=== PATIENT | female | born 2000 | race Caucasian/White ===

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

== ENCOUNTER → 2021-06-01 | Outpatient (CLI) | payer BC, SELFPAY ==
[2021-06-01 15:04] LABS: BASO % 0.4 % (0.0-1.0); EOS # 0.1 10^3/uL (0.0-0.5); EOS % 1.8 % (0.0-3.0); HEMATOCRIT 40.6 % (36.0-47.0); HEMOGLOBIN 13.8 g/dl (12.0-15.5); LYMPH # 2.6 10^3/uL (1.5-5.0); LYMPH % 38.2 % (24.0-44.0); MEAN CORPUSCULAR HEMOGLOBIN 29.4 pg (27.0-33.0); MEAN CORPUSCULAR VOLUME 86.4 fl (80.0-96.0); MONO # 0.3 10^3/uL (0.0-0.8); MONO % 4.9 % (2.0-8.0); NEUTROPHILS # 3.7 10^3/uL (1.5-8.5); NEUTROPHILS % 54.4 % (36.0-66.0); PLATELET COUNT, AUTOMATED 256 10^3/uL (150-450); WHITE BLOOD COUNT 6.8 10^3/uL (4.0-10.0)
[2021-06-01 15:26] LABS: ALBUMIN 3.7 GM/DL (3.2-5.2); ALT/SGPT 21 U/L (12-78); BILIRUBIN,TOTAL 0.4 MG/DL (0.2-1.0); BLOOD UREA NITROGEN 8 MG/DL (7-18); CALCIUM LEVEL 9.2 MG/DL (8.5-10.1); CARBON DIOXIDE LEVEL 27 MEQ/L (21-32); CHLORIDE LEVEL 104 MEQ/L (98-107); CHOLESTEROL LEVEL 206 MG/DL (<200); CREATININE FOR GFR 0.88 MG/DL (0.55-1.30); GLUCOSE, FASTING 110 MG/DL (70-100); HDL CHOLESTEROL 50 MG/DL (>40); LDL CHOLESTEROL 132 MG/DL (<100); NON-HDL-C 156 MG/DL; POTASSIUM SERUM 3.8 MEQ/L (3.5-5.1); SODIUM LEVEL 138 MEQ/L (136-145); THYROID STIMULATING HORMONE 0.895 uIU/ML (0.463-3.98); TOTAL PROTEIN 7.2 GM/DL (6.4-8.2); TRIGLYCERIDES LEVEL 119 MG/DL (<150)
[2021-06-01 15:28] LABS: TOTAL 25(OH) VITAMIN D 11.3 NG/ML (30.0-100.0)
[2021-06-01 15:29] LABS: VITAMIN B12 LEVEL 432 PG/ML (247-911)
== END ==
LOC: M LAB 14:13
PROVIDERS: ATTEND Internal Medicine
DX: Z79.899 Other long term (current) drug therapy (principal)

== ENCOUNTER 2021-07-07 14:33 | Emergency (ER) | payer BC ==
[~2021-07-07] VITALS: Ht 161.3 cm; Wt 72.7 kg
[2021-07-07] MEDS ORDERED: CLON-412 (14:44)
[2021-07-07] MEDS ORDERED: DOXE25CA (14:44)
[2021-07-07] MEDS ORDERED: OXCA150T21 (14:44)
[2021-07-07] MEDS ORDERED: ONDANSETRON 4MG ORAL DISINTEGRATING TAB PO ONE (17:50)
[2021-07-07] MEDS ORDERED: ACETAMINOPHEN 325 MG TAB PO ONE (17:50)
[2021-07-07] MEDS ORDERED: ONDA4TAB6 PO (18:36)
[2021-07-07 18:43] VITALS: BP 119/73
== END 2021-07-07 18:45 | disposition home or self-care (01) ==
LOC: M ED 14:33
DX: S06.0X0A Concussion without loss of consciousness, initial encounter (principal); X58.XXXA Exposure to other specified factors, initial encounter; Y92.018 Other place in single-family (private) house as the place of occurrence of the external cause; Y93.83 Activity, rough housing and horseplay; F33.9 Major depressive disorder, recurrent, unspecified; Z86.19 Personal history of other infectious and parasitic diseases; Z91.030 Bee allergy status; Z79.899 Other long term (current) drug therapy; Z79.3 Long term (current) use of hormonal contraceptives; F17.210 Nicotine dependence, cigarettes, uncomplicated

== ENCOUNTER 2023-06-09 16:51 | Emergency (ER) | payer BC, MEDICAID, OTHER, SELFPAY ==
[~2023-06-09] VITALS: Ht 160 cm; Wt 67.1 kg
[~2023-06-09 16:51] MED LIST changes: +CLON-412; +DOXE25CA; +OXCA150T21
[2023-06-09] MEDS ORDERED: LINZ72CA (17:07)
[2023-06-09] MEDS ORDERED: VRAY3CAP (17:07)
[2023-06-09] MEDS: MORPHINE 4 MG/ML 1ML VIAL IV ONE (17:35)
[2023-06-09] MEDS: ONDANSETRON 4MG 2ML VIAL IV ONE (17:35)
[2023-06-09] MEDS: NS 1,000 ML IV ONE (17:35)
[2023-06-09 17:46] LABS: BASO % 0.5 % (0.0-1.0); EOS # 0.2 10^3/uL (0.0-0.5); EOS % 2.8 % (0.0-3.0); HEMATOCRIT 40.1 % (36.0-47.0); HEMOGLOBIN 13.8 g/dl (12.0-15.5); LYMPH # 2.5 10^3/uL (1.5-5.0); LYMPH % 38.9 % (24.0-44.0); MEAN CORPUSCULAR HEMOGLOBIN 30.1 pg (27.0-33.0); MEAN CORPUSCULAR HGB CONC 34.4 g/dl (32.0-36.5); MEAN CORPUSCULAR VOLUME 87.6 fl (80.0-96.0); MONO # 0.4 10^3/uL (0.0-0.8); NEUTROPHILS # 3.2 10^3/uL (1.5-8.5); NEUTROPHILS % 50.6 % (36.0-66.0); PLATELET COUNT, AUTOMATED 207 10^3/uL (150-450); RED BLOOD COUNT 4.58 10^6/uL (4.00-5.40); WHITE BLOOD COUNT 6.3 10^3/uL (4.0-10.0)
[2023-06-09] MEDS ORDERED: ISOVUE-370 76% 100ML VIAL As Ordered ONE (17:53)
[2023-06-09 18:12] LABS: ALBUMIN 3.4 G/DL (3.2-5.2); BILIRUBIN,DIRECT 0.1 MG/DL (<0.4); BILIRUBIN,TOTAL 0.4 MG/DL (0.3-1.2); TOTAL PROTEIN 6.5 G/DL (5.7-8.2)
[2023-06-09 19:31] VITALS: BP 133/75; TEMP 97.5; O2SAT 98
== END 2023-06-09 19:33 | disposition home or self-care (01) ==
LOC: M ED 16:51
DX: K59.00 Constipation, unspecified (principal); K58.9 Irritable bowel syndrome, unspecified; K21.9 Gastro-esophageal reflux disease without esophagitis; F31.9 Bipolar disorder, unspecified; F17.290 Nicotine dependence, other tobacco product, uncomplicated; Z79.899 Other long term (current) drug therapy; Z91.030 Bee allergy status
CPT/HCPCS: 74177; 80047; 80076; 81001; 83690; 84702; 85025; 96361; 96374; 96375; 99284; J2405; Q9967

== ENCOUNTER 2023-12-20 18:00 | Emergency (ER) | payer MEDICAID, OTHER ==
[~2023-12-20] VITALS: Ht 160 cm; Wt 68.3 kg
[~2023-12-20 18:00] MED LIST changes: +LINZ72CA; +ONDA-282 PO; -ONDA4TAB6 PO; +VRAY3CAP
[2023-12-20 18:04] VITALS: TEMP 97.4
[2023-12-20] MEDS ORDERED: LARI1TAB3 (18:11)
[2023-12-20] MEDS ORDERED: ACET-683 PO (18:11)
[2023-12-20 19:08] LABS: BASO % 0.4 % (0.0-1.0); EOS # 0.1 10^3/uL (0.0-0.5); EOS % 0.7 % (0.0-3.0); HEMATOCRIT 38.5 % (36.0-47.0); HEMOGLOBIN 13.2 g/dl (12.0-15.5); LYMPH # 2.3 10^3/uL (1.5-5.0); LYMPH % 31.8 % (24.0-44.0); MEAN CORPUSCULAR HEMOGLOBIN 30.7 pg (27.0-33.0); MEAN CORPUSCULAR HGB CONC 34.3 g/dl (32.0-36.5); MEAN CORPUSCULAR VOLUME 89.5 fl (80.0-96.0); MONO # 0.5 10^3/uL (0.0-0.8); MONO % 6.5 % (2.0-8.0); NEUTROPHILS # 4.4 10^3/uL (1.5-8.5); NEUTROPHILS % 60.3 % (36.0-66.0); PLATELET COUNT, AUTOMATED 207 10^3/uL (150-450); WHITE BLOOD COUNT 7.4 10^3/uL (4.0-10.0)
[2023-12-20 19:30] LABS: BLOOD UREA NITROGEN 10 MG/DL (9-23); CALCIUM LEVEL 9.3 MG/DL (8.5-10.1); CARBON DIOXIDE LEVEL 26 MMOL/L (20-31); CHLORIDE LEVEL 107 MMOL/L (98-107); CREATININE FOR GFR 0.82 MG/DL (0.55-1.30); GLOMERULAR FILTRATION RATE > 60.0 (>60); GLUCOSE, FASTING 91 MG/DL (60-100); POTASSIUM SERUM 4.3 MMOL/L (3.5-5.1); SODIUM LEVEL 138 MMOL/L (136-145)
[2023-12-20 19:38] LABS: THYROID STIMULATING HORMONE 0.559 uIU/ML (0.55-4.78)
[2023-12-20 20:10] LABS: HCG, SERUM QUALITATIVE NEGATIVE (NEGATIVE)
[2023-12-20] MEDS: KETOROLAC 30 MG/ML 1ML VIAL IV ONE (20:30)
[2023-12-20 21:15] VITALS: BP 138/70
[2023-12-20 22:11] LABS: AMPHETAMINES LEVEL URINE NEGATIVE (NEGATIVE); BARBITURATES URINE NEGATIVE (NEGATIVE); BENZODIAZEPINES URINE NEGATIVE (NEGATIVE); CANNABINOIDS URINE NEGATIVE (NEGATIVE); COCAINE METABOLITE URINE NEGATIVE (NEGATIVE); METHADONE URINE NEGATIVE (NEGATIVE); OPIATES URINE NEGATIVE (NEGATIVE); PHENCYCLIDINE URINE NEGATIVE (NEGATIVE)
[2023-12-20 22:30] VITALS: O2SAT 98
== END 2023-12-20 22:34 | disposition home or self-care (01) ==
LOC: M ED 18:00
DX: S09.90XA Unspecified injury of head, initial encounter (principal); R55 Syncope and collapse; X58.XXXA Exposure to other specified factors, initial encounter; Y92.9 Unspecified place or not applicable; Y93.9 Activity, unspecified; Y99.9 Unspecified external cause status; F41.9 Anxiety disorder, unspecified; F32.A Depression, unspecified; F17.290 Nicotine dependence, other tobacco product, uncomplicated; Z79.899 Other long term (current) drug therapy; Z91.030 Bee allergy status
CPT/HCPCS: 70450; 80048; 80307; 84443; 84703; 85025; 85379; 93005; 93041; 94760; 96374; 99285; J1885

== ENCOUNTER 2024-02-20 15:27 | Emergency (ER) | payer OTHER ==
[~2024-02-20] VITALS: Ht 160 cm; Wt 72.0 kg
[~2024-02-20 15:27] MED LIST changes: +ACET-683 PO; -CLON-412; +CLON-412 PO; +LARI1TAB3
[2024-02-20 17:12] LABS: BASO % 0.6 % (0.0-1.0); EOS # 0.1 10^3/uL (0.0-0.5); HEMOGLOBIN 14.7 g/dl (12.0-15.5); LYMPH # 2.6 10^3/uL (1.5-5.0); MEAN CORPUSCULAR HEMOGLOBIN 30.3 pg (27.0-33.0); MEAN CORPUSCULAR VOLUME 86.6 fl (80.0-96.0); MONO # 0.4 10^3/uL (0.0-0.8); MONO % 6.8 % (2.0-8.0); NEUTROPHILS # 3.1 10^3/uL (1.5-8.5); NEUTROPHILS % 49.4 % (36.0-66.0); PLATELET COUNT, AUTOMATED 217 10^3/uL (150-450); RED BLOOD COUNT 4.85 10^6/uL (4.00-5.40); WHITE BLOOD COUNT 6.4 10^3/uL (4.0-10.0)
[2024-02-20 17:45] LABS: HCG, SERUM QUALITATIVE NEGATIVE (NEGATIVE); LIPASE 53 U/L (12-53)
[2024-02-20 17:46] LABS: ALBUMIN 3.8 G/DL (3.2-5.2); ALKALINE PHOSPHATASE 60 U/L (35-104); ALT/SGPT 13 U/L (7.0-40); AST/SGOT 14 U/L (<34); BILIRUBIN,DIRECT 0.1 MG/DL (<0.4); BILIRUBIN,TOTAL 0.4 MG/DL (0.3-1.2); BLOOD UREA NITROGEN 10 MG/DL (9-23); CALCIUM LEVEL 9.8 MG/DL (8.5-10.1); CARBON DIOXIDE LEVEL 25 MMOL/L (20-31); CHLORIDE LEVEL 105 MMOL/L (98-107); CREATININE FOR GFR 0.67 MG/DL (0.55-1.30); GLOMERULAR FILTRATION RATE > 60.0 (>60); GLUCOSE, FASTING 87 MG/DL (60-100); POTASSIUM SERUM 4.2 MMOL/L (3.5-5.1); SODIUM LEVEL 139 MMOL/L (136-145); TOTAL PROTEIN 7.5 G/DL (5.7-8.2)
[2024-02-20] MEDS: ONDANSETRON 4MG ORAL DISINTEGRATING TAB PO ONE (19:43)
[2024-02-20 19:58] LABS: KETONE, URINE AUTO RFX NEGATIVE (NEGATIVE); LEUKOCYTE ESTERASE UR AUTO RFX NEGATIVE (NEGATIVE); MUCUS, URINE RFX SMALL (NEGATIVE)
[2024-02-20] MEDS ORDERED: ONDA-282 PO (20:34)
[2024-02-20 20:40] VITALS: BP 129/78; TEMP 98.9; O2SAT 97
[2024-02-20 21:05] LABS: Trichomonas vaginalis (AMP) NOT DETECTED (NEGATIVE)
[2024-02-20 21:28] LABS: GC DNA AMPLIFICATION NEGATIVE (NEGATIVE)
== END 2024-02-20 20:41 | disposition home or self-care (01) ==
LOC: M ED 15:27
DX: R10.9 Unspecified abdominal pain (principal); R11.2 Nausea with vomiting, unspecified; F32.A Depression, unspecified; Z79.3 Long term (current) use of hormonal contraceptives; Z79.899 Other long term (current) drug therapy; Z91.030 Bee allergy status

== ENCOUNTER → 2024-04-09 | Outpatient (REF) | payer OTHER ==
[2024-04-09 15:16] LABS: ALBUMIN 3.4 G/DL (3.2-5.2); ALKALINE PHOSPHATASE 58 U/L (35-104); ALT/SGPT 15 U/L (7.0-40); AST/SGOT 12 U/L (<34); BILIRUBIN,TOTAL 0.5 MG/DL (0.3-1.2); BLOOD UREA NITROGEN 10 MG/DL (9-23); CALCIUM LEVEL 9.4 MG/DL (8.5-10.1); CARBON DIOXIDE LEVEL 29 MMOL/L (20-31); CHLORIDE LEVEL 106 MMOL/L (98-107); CHOLESTEROL LEVEL 225 MG/DL (<200); CHOLESTEROL RISK RATIO 3.04 (<5); CREATININE FOR GFR 0.81 MG/DL (0.55-1.30); GLOMERULAR FILTRATION RATE > 60.0 (>60); GLUCOSE, FASTING 86 MG/DL (60-100); POTASSIUM SERUM 4.2 MMOL/L (3.5-5.1); SODIUM LEVEL 142 MMOL/L (136-145); TOTAL PROTEIN 6.8 G/DL (5.7-8.2); TRIGLYCERIDES LEVEL 100 MG/DL (<150)
[2024-04-09 15:17] LABS: TOTAL 25(OH) VITAMIN D 11.7 NG/ML (20.0-100.0)
[2024-04-09 15:18] LABS: THYROID STIMULATING HORMONE 1.032 uIU/ML (0.55-4.78)
[2024-04-09 15:24] LABS: HCG, SERUM QUALITATIVE NEGATIVE (NEGATIVE)
[2024-04-09 15:43] LABS: HIV 1&2 SCREEN NEGATIVE (NEGATIVE)
[2024-04-09 15:50] LABS: HEPATITIS C VIRUS ABY INDEX 0.13 INDEX (<0.8)
== END ==
LOC: M LAB REF 13:19
PROVIDERS: ATTEND Physician Assistant
DX: Z11.9 Encounter for screening for infectious and parasitic diseases, unspecified (principal); E66.9 Obesity, unspecified; N92.6 Irregular menstruation, unspecified

== ENCOUNTER → 2024-06-04 | Outpatient (REF) | payer OTHER ==
[2024-06-07 15:02] LABS: HPV APTIMA Not Detected (Not Detected)
== END ==
LOC: M LAB REF 13:26
PROVIDERS: ATTEND Physician Assistant
DX: Z12.4 Encounter for screening for malignant neoplasm of cervix (principal)

== ENCOUNTER → 2024-11-05 | Outpatient (CLI) | payer OTHER | LOC: M RAD 12:43 | PROVIDERS: ATTEND Physician Assistant | DX: N92.6 Irregular menstruation, unspecified (principal) ==

== ENCOUNTER → 2024-11-11 | Outpatient (REF) | payer OTHER ==
[2024-11-11 19:49] LABS: BASO # 0.0 10^3/uL (0.0-0.2); BASO % 0.3 % (0.0-1.0); EOS # 0.1 10^3/uL (0.0-0.5); EOS % 1.5 % (0.0-3.0); LYMPH # 2.3 10^3/uL (1.5-5.0); LYMPH % 31.7 % (24.0-44.0); MONO # 0.3 10^3/uL (0.0-0.8); MONO % 4.8 % (2.0-8.0); NEUTROPHILS # 4.4 10^3/uL (1.5-8.5); NEUTROPHILS % 61.6 % (36.0-66.0); PLATELET COUNT, AUTOMATED 220 10^3/uL (150-450)
[2024-11-11 19:53] LABS: IRON (FE) 54 UG/DL (50-170)
[2024-11-11 19:54] LABS: PERCENT SATURATION 15.9 % (13.2-45.0)
[2024-11-11 20:01] LABS: HCG, SERUM QUALITATIVE NEGATIVE (NEGATIVE)
== END ==
LOC: M LAB REF 14:31
PROVIDERS: ATTEND Physician Assistant
DX: N92.6 Irregular menstruation, unspecified (principal); D64.9 Anemia, unspecified

== ENCOUNTER 2024-12-22 14:20 | Emergency (ER) | payer OTHER ==
[~2024-12-22] VITALS: Ht 160 cm; Wt 69.7 kg
[2024-12-22] MEDS ORDERED: TRAZ1TAB10 (14:30)
[2024-12-22 15:00] LABS: BASO # 0.0 10^3/uL (0.0-0.2); BASO % 0.5 % (0.0-1.0); EOS # 0.1 10^3/uL (0.0-0.5); EOS % 1.4 % (0.0-3.0); LYMPH # 2.6 10^3/uL (1.5-5.0); LYMPH % 31.9 % (24.0-44.0); MONO # 0.3 10^3/uL (0.0-0.8); MONO % 4.1 % (2.0-8.0); NEUTROPHILS # 5.0 10^3/uL (1.5-8.5); NEUTROPHILS % 61.9 % (36.0-66.0); PLATELET COUNT, AUTOMATED 247 10^3/uL (150-450)
[2024-12-22 15:07] LABS: KETONE, URINE AUTO RFX NEGATIVE (NEGATIVE); NITRITE, URINE AUTO RFX NEGATIVE (NEGATIVE); RBC, URINE AUTO RFX 0 /HPF (0-3); SQUAM EPITHELIAL CELL UR AURFX 9 /HPF (0-6)
[2024-12-22 15:09] LABS: LEUKOCYTE ESTERASE UR AUTO RFX 3+ (NEGATIVE); WBC, URINE AUTO RFX 14 /HPF (0-3)
[2024-12-22 15:31] LABS: ALT/SGPT 16 U/L (7.0-40); AST/SGOT 15 U/L (<34); CALCIUM LEVEL 9.5 MG/DL (8.5-10.1); CARBON DIOXIDE LEVEL 26 MMOL/L (20-31); CHLORIDE LEVEL 105 MMOL/L (98-107); CREATININE FOR GFR 0.78 MG/DL (0.55-1.30); GLOMERULAR FILTRATION RATE > 90.0 (>60); POTASSIUM SERUM 3.9 MMOL/L (3.5-5.1); SODIUM LEVEL 141 MMOL/L (136-145)
[2024-12-22 15:42] LABS: HCG, SERUM QUALITATIVE NEGATIVE (NEGATIVE)
[2024-12-22] MEDS: ONDANSETRON 4MG/2ML VIAL IV ONE (17:11)
[2024-12-22] MEDS: KETOROLAC 30 MG/ML 1 ML VIAL IV ONE (17:11)
[2024-12-22] MEDS ORDERED: ISOVUE-370 76% 100 ML VIAL As Ordered ONE (17:49)
[2024-12-22 18:30] VITALS: BP 122/58; TEMP 98.5; O2SAT 97
[2024-12-22] MEDS ORDERED: NITR100C3 PO (18:39)
[2024-12-22] MEDS: NITROFURANTOIN 100 MG CAP PO ONE (18:40)
== END 2024-12-22 18:49 | disposition home or self-care (01) ==
LOC: M ED 14:20
DX: N39.0 Urinary tract infection, site not specified (principal); F41.9 Anxiety disorder, unspecified; F32.A Depression, unspecified; K58.1 Irritable bowel syndrome with constipation; F17.200 Nicotine dependence, unspecified, uncomplicated; Z79.3 Long term (current) use of hormonal contraceptives; Z79.899 Other long term (current) drug therapy; Z91.030 Bee allergy status
CPT/HCPCS: 74177; 80048; 80076; 81001; 82150; 83690; 84703; 85025; 87088; 96374; 96375; 99284; J1885; J2405; Q9967

== ENCOUNTER → 2025-01-17 | Outpatient (REF) | payer OTHER ==
[~2025-01-17] MED LIST changes: +LOPE1TAB PO; +NITR100C3 PO; +TRAZ1TAB10
== END ==
LOC: M LAB REF 17:16
PROVIDERS: ATTEND Physician Assistant Medical
DX: R19.7 Diarrhea, unspecified (principal)

== ENCOUNTER 2025-01-18 08:13 | Emergency (ER) | payer OTHER ==
[~2025-01-18] VITALS: Ht 160 cm; Wt 69.5 kg
[~2025-01-18 08:13] MED LIST changes: -LOPE1TAB PO
[2025-01-18] MEDS: ONDANSETRON 4MG ORAL DISINTEGRATING TAB PO ONE (09:23)
[2025-01-18] MEDS ORDERED: ONDA-282 PO (10:26)
[2025-01-18] MEDS ORDERED: LOPE1TAB PO (10:26)
[2025-01-18 10:45] VITALS: BP 99/54; TEMP 98.6; O2SAT 98
== END 2025-01-18 10:46 | disposition home or self-care (01) ==
LOC: M ED 09:03
DX: R11.2 Nausea with vomiting, unspecified (principal); R19.7 Diarrhea, unspecified; F32.9 Major depressive disorder, single episode, unspecified; F41.9 Anxiety disorder, unspecified; Z79.899 Other long term (current) drug therapy; Z91.030 Bee allergy status